=== PATIENT | female | born 1965 | race Caucasian/White ===

== ENCOUNTER 2017-04-18 06:54 | Emergency (ER) | payer BC ==
[~2017-04-18 06:54] MED LIST: ASAB PO; ASABAYER PO; AUG875 PO; BUSPAR15 M1 PO; CHANTIX1 PO; COZ50 PO; DIOV80 PO; EFFIENT10 PO; GARLIC SUPPLEMENT PO; IMDUR30 PO; LOP25 PO; MEDROLPAK4 PO; NEXIUM20 M1 PO; NEXIUM40 PO; NITROSTAT0.4 MG SL; NORV5 PO; PLAVIX PO; PRILO PO; SEROQUEL50 MG PO; SLEEP MEDICATION; TYLENOL PM PO; ZANTAC150 MG PO; ZOCOR20 PO
== END 2017-04-18 07:50 | disposition home or self-care (01) ==
LOC: ER 06:54
DX: M54.6 Pain in thoracic spine (principal); Z87.891 Personal history of nicotine dependence; I10 Essential (primary) hypertension; Z95.5 Presence of coronary angioplasty implant and graft; E78.5 Hyperlipidemia, unspecified; K21.9 Gastro-esophageal reflux disease without esophagitis; Z79.899 Other long term (current) drug therapy; Z79.82 Long term (current) use of aspirin
CPT/HCPCS: 72072; 96372; 99283; A9270-GY; J2360